=== PATIENT | male | born 1940 | race Caucasian/White ===

== ENCOUNTER 2016-03-08 16:24 | Observation (INO) | payer OTHER ==
[~2016-03-08] VITALS: Ht 177.8 cm; Wt 92.7 kg
[2016-03-08 17:32] LABS: HEMATOCRIT 46.7 % (38.0-50.0); MCH 29.4 PG (29.0-34.0); MCHC 35.5 G/DL (30.0-36.0); MCV 82.8 FL (86-99); MEAN PLAT.VOLUME 9.9 uM^3 (9.0-12.4); PLATELET COUNT 254 K/uL (156-360); RBC DIS.WIDTH-CV 12.9 % (11.8-14.6); RED BLOOD COUNT 5.64 M/uL (4.00-5.50); WHITE BLOOD COUNT 8.5 K/uL (4.1-10.2)
[2016-03-08 17:39] LABS: CHLORIDE 105 mEq/L (99-109); POTASSIUM 4.3 mEq/L (3.7-5.4); SODIUM 142 mEq/L (136-147)
[2016-03-08 17:41] LABS: GLUCOSE 89 mg/dL (70-99)
[2016-03-08 17:42] LABS: ANION GAP 10 MEQ/L (2-14)
[2016-03-08 17:46] LABS: GFR ESTIMATE (CALCULATED) > 59 mL/min/; UREA NITROGEN (BUN) 17 mg/dL (9-23)
[2016-03-08 18:45] LABS: TROP-I INTERPRETATION NEGATIVE; TROPONIN-I < 0.01 ng/mL (0.0-0.30)
[2016-03-08] MEDS ORDERED: PAMELOR25 MG PO (22:44)
[2016-03-08] MEDS ORDERED: LEXAPRO20 MG PO (22:44)
[2016-03-08] MEDS ORDERED: KLONOPIN1 MG PO (22:45)
[2016-03-08] MEDS ORDERED: REMERON45 MG PO (22:45)
[2016-03-08] MEDS ORDERED: PLAVIX75 MG PO (22:45)
[2016-03-08] MEDS ORDERED: CENTRUM COMPLE1 EACH PO (22:46)
[2016-03-08] MEDS ORDERED: B-COMPLEX-VITA1 EACH PO (22:46)
[2016-03-08] MEDS ORDERED: LIPITOR40 MG PO (22:46)
[2016-03-08] MEDS ORDERED: LO-DOSE ASPIRIN81 M1 PO (22:46)
[2016-03-08] MEDS ORDERED: LOPRESSOR25 MG PO (22:46)
[2016-03-08] MEDS ORDERED: VITAMIN D32000 UNI1 PO (22:47)
[2016-03-09 00:41] VITALS: BP 144/78
[2016-03-09 01:04] LABS: TROP-I INTERPRETATION NEGATIVE; TROPONIN-I < 0.01 ng/mL (0.0-0.30)
[2016-03-09 04:31] VITALS: BP 128/71
[2016-03-09 06:16] LABS: HDL CHOLESTEROL 36 MG/DL (Desirable>=40); LDL CHOLESTEROL 46 mg/dL (Desirable<100); NON-HDL CHOLESTEROL 74 mg/dL (Desirable<160); TOTAL CHOLESTEROL 110 mg/dL (Desirable<200); TRIGLYCERIDES 138 MG/DL (Normal: <150)
[2016-03-09 06:24] LABS: TROP-I INTERPRETATION NEGATIVE; TROPONIN-I < 0.01 ng/mL (0.0-0.30)
[2016-03-09 08:58] VITALS: BP 123/62
[2016-03-09 12:53] VITALS: BP 115/68
[2016-03-09] MEDS ORDERED: LIPITOR40 MG PO (14:28)
== END 2016-03-09 15:35 | disposition home or self-care (01) ==
LOC: EME 16:24 → EDOF 23:10 → 5WEST 23:10
PROVIDERS: Physician Assistant Medical
DX: R42 Dizziness and giddiness (principal); I25.10 Atherosclerotic heart disease of native coronary artery without angina pectoris; Z98.61 Coronary angioplasty status; I25.2 Old myocardial infarction; R11.0 Nausea; R06.02 Shortness of breath; I10 Essential (primary) hypertension; Z87.891 Personal history of nicotine dependence; Z82.49 Family history of ischemic heart disease and other diseases of the circulatory system; Z79.02 Long term (current) use of antithrombotics/antiplatelets; Z79.82 Long term (current) use of aspirin
CPT/HCPCS: 71020; 80048; 80061; 84484; 85027; 93005; 99281; 99285; G0378; J1644